=== PATIENT | female | born 1940 | race Caucasian/White ===

== ENCOUNTER → 2018-06-20 | Outpatient (CLI) | payer MEDICARE, OTHER ==
[~2018-06-20] MED LIST: ATIVAN0.5 MG PO; CELEBREX200 MG PO; DIOVAN/HCT 12.51 TAB PO; LEVOFLOXACIN500 MG PO; LOSARTAN POTASS1 TA3 PO; NEXIUM40 MG PO; VICODIN 500 MG-1 TAB PO
[2018-06-20 10:24] LABS: BASO % 0.7 % (0.0-1.0); EOS # 0.2 10*3/uL (0.0-0.4); EOS % 3.2 % (1.0-4.0); HEMATOCRIT 44.1 % (37.0-47.0); HEMOGLOBIN 14.3 g/dl (12.0-16.0); LYMPH % 33.5 % (27.0-41.0); MEAN CELL VOLUME 92.1 fl (81.0-99.0); MEAN CORPUSCULAR HGB 29.9 pg (27.0-31.0); MEAN CORPUSCULAR HGB CONC 32.4 g/dl (33.0-37.0); MEAN PLATELET VOLUME 10.7 fl (9.6-12.3); MONO # 0.5 10*3/uL (0.1-1.0); MONO % 8.5 % (3.0-9.0); NEUT # 3.2 10*3/uL (2.3-7.9); NEUT % 53.8 % (47.0-73.0); PLATELET COUNT AUTOMATED 233 10*3/uL (130-400); RED BLOOD COUNT 4.79 10*6/uL (4.10-5.10); RED CELL DISTRI WIDTH 13.2 % (0-14.5); WHITE BLOOD COUNT 5.9 10*3/uL (4.8-10.8)
[2018-06-20 10:55] LABS: ALBUMIN 3.7 gm/dl (3.1-4.5); ALKALINE PHOSPHATASE 103 U/L (45-117); BUN 14 mg/dl (7-24); CHLORIDE 108 mmol/L (98-107); CHOLESTEROL 244 mg/dL (<200); CREATININE 0.89 mg/dL (0.55-1.02); HDL CHOLESTEROL 54 mg/dl (40-60); LDL CHOLESTEROL 151 mg/dL (9-159); SGOT/AST 14 IU/L (3-35); SGPT/ALT 21 U/L (12-78); SODIUM 141 mmol/L (136-145); TOTAL PROTEIN 7.1 gm/dL (6.4-8.2); TRIGLYCERIDES 197 mg/dl (<150); VLDL CHOLESTEROL 39 mg/dL (6-40)
[2018-06-20 11:19] LABS: PTH INTACT 92.1 pg/mL (18.5-88.0); VITAMIN D, 25-HYDROXY 15.7 ng/mL (30-100)
== END | disposition home or self-care (01) ==
LOC: LAB 09:52
PROVIDERS: Family Medicine
DX: K21.9 Gastro-esophageal reflux disease without esophagitis (principal); E21.3 Hyperparathyroidism, unspecified; F41.1 Generalized anxiety disorder; E78.2 Mixed hyperlipidemia; M79.672 Pain in left foot

== ENCOUNTER → 2019-08-10 | Outpatient (CLI) | payer MEDICARE, OTHER | END | disposition home or self-care (01) | LOC: RAD 11:30 | DX: R06.02 Shortness of breath (principal); R05 Cough ==

== ENCOUNTER → 2019-08-14 | Outpatient (CLI) | payer MEDICARE, OTHER ==
--- NOTE | ~2019-08-14 | EKG ---
[place], [place] ELECTROCARDIOGRAM REPORT NAME: ELVI WYNN UNIT #: [id number] ROOM: DOCTOR: EPIPHANY DRAFT REPORT BIRTHDATE: [birth year] [facility] Test Date: 2019-08-14 Test Time: 08:41:55 Pat Name: ELVI WYNN Department: Room: Gender: F Registered Nurse Teacher: Alissa Siu : 1940 Requested By: JUANI MCCABE Order Number: [id number] Reading MD: Russel Kincaid MD Measurements Intervals [place] Rate: 66 P: 18 TN: 182 QRS: -31 QRSD: 86 T: 33 QT: 387 QTc: 406 Interpretive Statements Sinus rhythm Left axis deviation Low voltage, precordial leads Abnormal R-wave progression, early transition Baseline wander in lead(s) II,III,aVL,aVF,V5 No previous ECG available for comparison Electronically Signed On 08-14-2019 13:45:24 PDT by Russel Kincaid MD CM:EKGRPT:ELECTROCARDIOGRAM REPORT [id number] JUANI MCCABE EPIPHANY DRAFT REPORT JUANI MCCABE
== END | disposition home or self-care (01) ==
LOC: CARD 00:46
DX: R06.02 Shortness of breath (principal)

== ENCOUNTER → 2020-05-03 | Outpatient (CLI) | payer MEDICARE, OTHER | END | disposition home or self-care (01) | LOC: US 15:30 | DX: K21.9 Gastro-esophageal reflux disease without esophagitis (principal); R06.02 Shortness of breath; R42 Dizziness and giddiness; F41.9 Anxiety disorder, unspecified ==

== ENCOUNTER → 2020-06-03 | Outpatient (CLI) | payer MEDICARE, OTHER | END | disposition home or self-care (01) | LOC: CT 12:40 | DX: R42 Dizziness and giddiness (principal) ==

== ENCOUNTER → 2020-08-02 | Outpatient (CLI) | payer MEDICARE, OTHER ==
[~2020-08-02] MED LIST changes: +OMEPRAZOLE40 MG PO
--- NOTE | 2020-08-02 10:15 | NUR ---
INFORMED CONSENT OBTAINED FOR LEXISCAN NUCLEAR STRESS TEST WITH DR. MARTINES. RESTING EKG NSR WITH A RESTING HR OF 78 WITH BP OF 134/78. LUNGS CLEAR WITH SPO2 OF 98% ON ROOM AIR. PT COMPLETED A 1:00 LEXISCAN PROTOCOL RECEIVING LEXISCAN 0.4 MG IV OVER 10 SECONDS. HAD NO CHEST PAIN OR ANY EKG CHANGES. DID C/O FEELING "WEAK" THAT SUBSIDED IN RECOVERY. HAD A PEAK HR OF 90 WITH BP OF 138/70. LAST RECOVERY HR OF 77 WITH BP OF 124/66. AWAITING SCANNING IN STABLE CONDITION.
== END | disposition home or self-care (01) ==
LOC: CARD 00:34
PROVIDERS: ATTEND Student in an Organized Health Care Education/Training Program
DX: R06.02 Shortness of breath (principal)

== ENCOUNTER → 2020-08-15 | Outpatient (CLI) | payer MEDICARE, OTHER | END | disposition home or self-care (01) | LOC: CARD 07-31 07:30 | PROVIDERS: ATTEND Surgery | DX: I51.7 Cardiomegaly (principal); Q05.9 Spina bifida, unspecified ==

== ENCOUNTER 2022-05-13 14:39 | Inpatient (IN) | payer MEDICARE, OTHER ==
[~2022-05-13] VITALS: Ht 144.7 cm; Wt 76.2 kg
[2022-05-13 14:53] VITALS: BP 164/71
[2022-05-13 15:15] LABS: BASO # 0.1 10*3/uL (0.0-0.1); BASO % 0.8 % (0.0-1.0); EOS # 0.1 10*3/uL (0.0-0.4); EOS % 1.8 % (1.0-4.0); HEMATOCRIT 43.3 % (37.0-47.0); LYMPH # 2.2 10*3/uL (1.3-4.4); LYMPH % 29.6 % (27.0-41.0); MEAN CELL VOLUME 91.5 fl (81.0-99.0); MEAN CORPUSCULAR HGB 30.4 pg (27.0-31.0); MEAN CORPUSCULAR HGB CONC 33.3 g/dl (33.0-37.0); MEAN PLATELET VOLUME 10.6 fl (9.6-12.3); MONO # 0.8 10*3/uL (0.1-1.0); NEUT # 4.1 10*3/uL (2.3-7.9); NEUT % 56.3 % (47.0-73.0); PLATELET COUNT AUTOMATED 233 10*3/uL (130-400); RED BLOOD COUNT 4.73 10*6/uL (4.10-5.10); RED CELL DISTRI WIDTH 12.9 % (0-14.5); WHITE BLOOD COUNT 7.4 10*3/uL (4.8-10.8)
[2022-05-13 15:29] LABS: ALKALINE PHOSPHATASE 113 U/L (45-117); BUN 13 mg/dl (7-24); CHLORIDE 108 mmol/L (98-107); CREATININE 0.84 mg/dL (0.55-1.02); POTASSIUM 4.4 mmol/L (3.5-5.1); SGOT/AST 38 IU/L (3-35); SGPT/ALT 37 U/L (12-78); SODIUM 141 mmol/L (136-145); TOTAL PROTEIN 7.3 gm/dL (6.4-8.2)
[2022-05-13 15:40] LABS: INTERNATIONAL NORM RATIO 0.9 (2.0-3.5)
[2022-05-13 16:53] VITALS: BP 162/72
[2022-05-13 17:35] VITALS: BP 151/70
[2022-05-13 20:00] VITALS: BP 115/50
[2022-05-14] VITALS: BP 105/73
[2022-05-14 05:33] LABS: BUN 13 mg/dl (7-24); CHLORIDE 109 mmol/L (98-107); CHOLESTEROL 218 mg/dL (<200); CREATININE 0.87 mg/dL (0.55-1.02); POTASSIUM 4.6 mmol/L (3.5-5.1); SGOT/AST 24 IU/L (3-35); SGPT/ALT 30 U/L (12-78); SODIUM 143 mmol/L (136-145); TOTAL PROTEIN 6.4 gm/dL (6.4-8.2); TRIGLYCERIDES 155 mg/dl (<150)
[2022-05-14 05:34] LABS: ALKALINE PHOSPHATASE 86 U/L (45-117); LDL CHOLESTEROL 139 mg/dL (9-159)
[2022-05-14 06:11] LABS: BASO # 0.1 10*3/uL (0.0-0.1); BASO % 0.9 % (0.0-1.0); EOS # 0.2 10*3/uL (0.0-0.4); HEMATOCRIT 43.3 % (37.0-47.0); LYMPH # 2.4 10*3/uL (1.3-4.4); LYMPH % 42.4 % (27.0-41.0); MEAN CELL VOLUME 92.9 fl (81.0-99.0); MEAN CORPUSCULAR HGB 29.8 pg (27.0-31.0); MEAN CORPUSCULAR HGB CONC 32.1 g/dl (33.0-37.0); MEAN PLATELET VOLUME 11.1 fl (9.6-12.3); MONO # 0.6 10*3/uL (0.1-1.0); MONO % 9.9 % (3.0-9.0); NEUT # 2.4 10*3/uL (2.3-7.9); NEUT % 42.3 % (47.0-73.0); PLATELET COUNT AUTOMATED 235 10*3/uL (130-400); RED BLOOD COUNT 4.66 10*6/uL (4.10-5.10); RED CELL DISTRI WIDTH 12.9 % (0-14.5); WHITE BLOOD COUNT 5.8 10*3/uL (4.8-10.8)
[2022-05-14 08:00] VITALS: BP 126/79
[2022-05-14 09:44] LABS: VITAMIN D, 25-HYDROXY 20.5 ng/mL (30-100)
[2022-05-14 12:00] VITALS: BP 119/70
[2022-05-14 16:00] VITALS: BP 107/63
[2022-05-14] MEDS ORDERED: ASPIRIN ADULT L81 M2 PO (17:12)
[2022-05-14] MEDS ORDERED: PROTONIX40 MG PO (17:12)
[2022-05-14] MEDS ORDERED: ATORVASTATIN CA40 M1 PO (17:12)
[2022-05-14] MEDS ORDERED: VITAMIN D350 MC2 PO (17:13)
== END 2022-05-14 18:55 | disposition home or self-care (01) | DRG 392 ==
LOC: ED 14:39 → EDHOLD 16:16 → 4E 16:16
PROVIDERS: Emergency Medicine; Internal Medicine; ADMIT Internal Medicine; ATTEND Internal Medicine
PROC: 4A02XM4 Measurement of Cardiac Total Activity, External Approach (ICD-10-PCS; principal; 2022-05-14)
PROC: 3E073KZ Introduction of Other Diagnostic Substance into Coronary Artery, Percutaneous Approach (ICD-10-PCS; 2022-05-14)
DX: K21.9 Gastro-esophageal reflux disease without esophagitis (principal); F41.9 Anxiety disorder, unspecified; E83.41 Hypermagnesemia; E78.5 Hyperlipidemia, unspecified; E66.9 Obesity, unspecified; E89.0 Postprocedural hypothyroidism; E87.8 Other disorders of electrolyte and fluid balance, not elsewhere classified; Z98.42 Cataract extraction status, left eye; Z98.41 Cataract extraction status, right eye; Z90.710 Acquired absence of both cervix and uterus; Z83.3 Family history of diabetes mellitus; Z82.49 Family history of ischemic heart disease and other diseases of the circulatory system; Z83.6 Family history of other diseases of the respiratory system; Z68.36 Body mass index [BMI] 36.0-36.9, adult

== ENCOUNTER → 2024-10-19 | Outpatient (CLI) | payer MEDICARE, OTHER ==
[~2024-10-19] MED LIST changes: +ASPIRIN ADULT L81 M2 PO; +ATORVASTATIN CA40 M1 PO; +MECLIZINE HCL25 M2 PO; +PROTONIX40 MG PO; +VITAMIN D350 MC2 PO
== END | disposition home or self-care (01) ==
LOC: US 09:45 → CARD 11:00
PROVIDERS: ATTEND Physician Assistant
DX: I65.23 Occlusion and stenosis of bilateral carotid arteries (principal); R00.2 Palpitations; R06.09 Other forms of dyspnea; R06.02 Shortness of breath; I49.8 Other specified cardiac arrhythmias; R42 Dizziness and giddiness